=== PATIENT | male | born 1940 | race Caucasian/White ===

== ENCOUNTER 2022-02-26 07:29 | Emergency (ER) | payer OTHER ==
[~2022-02-26] VITALS: Ht 172.7 cm; Wt 100.0 kg
[2022-02-26 08:27] LABS: Basophils # (auto) 0.1 10 ^3/uL (0-0.2); Basophils % (auto) 0.7 % (0.0-2.0); Eosinophils # (auto) 0 10 ^3/uL (0-0.8); Eosinophils % (auto) 0.5 % (0.0-7.0); Hematocrit 44.1 % (41.0-53.0); Hemoglobin 14.7 g/dL (13.5-17.5); Lymphocytes # (auto) 1.2 10 ^3/uL (0.4-5.4); Lymphocytes % (auto) 15.4 % (10.0-50.0); Mean Corpuscular Hemoglobin 28.6 pg (28.0-32.0); Mean Corpuscular Hgb Conc. 33.2 g/dL (32.0-36.0); Mean Corpuscular Volume 86.1 fL (80.0-100.0); Monocytes # (auto) 0.4 10 ^3/uL (0-1.3); Monocytes % (auto) 5.2 % (0.0-12.0); Neutrophils # (auto) 5.9 10 ^3/uL (1.6-8.6); Neutrophils % (auto) 78.2 % (37.0-80.0); Red Blood Cells 5.12 10^6/uL (4.5-5.90); Red Cell Distribution Width 13.7 % (11.8-14.3); White Blood Cell 7.5 10^3/uL (4.4-10.8)
[2022-02-26 08:42] LABS: Albumin 4.1 g/dL (3.4-5.0); Calcium 10.7 mg/dL (8.5-10.1); Potassium 3.4 mmol/L (3.5-5.1)
[2022-02-26 08:45] LABS: BUN/Creatinine Ratio 11.6; Bilirubin, Total 1.2 mg/dL (0.2-1.0); Total Protein 7.6 g/dL (6.4-8.2)
[2022-02-26 10:51] LABS: Urine Bacteria NONE SEEN /hpf (None Seen); Urine Blood TRACE /uL (Negative); Urine Hyaline Cast FEW /lpf (0 - 2); Urine Mucus FEW (None Seen); Urine Specific Gravity 1.025 (1.001-1.035); Urine WBC 1 /hpf (0 - 3)
[2022-02-26 13:15] VITALS: BP 132/68
[2022-02-26] MEDS ORDERED: GABA-339 PO (13:17)
== END 2022-02-26 13:32 | disposition home or self-care (01) ==
LOC: ER 07:29
DX: K52.9 Noninfective gastroenteritis and colitis, unspecified (principal); G89.4 Chronic pain syndrome; F15.93 Other stimulant use, unspecified with withdrawal; I10 Essential (primary) hypertension; E78.5 Hyperlipidemia, unspecified
CPT/HCPCS: 36415; 80053; 81001; 84484; 85025; 93005